=== PATIENT | male | born 1995 | race African-American/Black ===

== ENCOUNTER 2017-01-06 11:32 | Emergency (ER) | payer OTHER ==
[~2017-01-06] VITALS: Ht 185.4 cm; Wt 90.0 kg
[2017-01-06] MEDS ORDERED: FLEXERIL10 MG PO (12:26)
[2017-01-06 14:24] VITALS: BP 125/72
== END 2017-01-06 14:24 ==
LOC: EME 11:32
DX: S46.811A Strain of other muscles, fascia and tendons at shoulder and upper arm level, right arm, initial encounter (principal); V54.6XXA Passenger in pick-up truck or van injured in collision with heavy transport vehicle or bus in traffic accident, initial encounter
CPT/HCPCS: 99281; 99283; J1885